=== PATIENT | female | born 1995 | race African-American/Black ===

== ENCOUNTER 2019-10-27 13:41 | Emergency (ER) | payer OTHER, SELFPAY ==
[2019-10-27 13:54] VITALS: BP 116/68; PULSE 87; RESP 16; TEMP 38.7; O2SAT 97
--- NOTE | 2019-10-27 14:01 | ED.GENADULT ---
HPI - General Adult General Chief complaint: Upper Respiratory Infection Stated complaint: bodyaches/cough/fever History of Present Illness HPI narrative: Patient is a 24-year-old -[place] female who presents to the urgent care via POV for evaluation of flulike symptoms that began approximately 3 days ago. She also reports frontal headache, wet, productive cough, fever, myalgias, nasal congestion, and decreased appetite. Maximum temperature was 102.0 per patient report. Symptoms improved with Janell-Homer and Mucinex. The smell of greesy foods worsen symptoms. She reports smoking marijuana daily. Denies history of COPD, bronchitis, asthma, and pneumonia. Denies current/past tobacco use. Pertinent negatives: sweats, chills, poor p.o. intake, fatigue, skin color changes, rhinorrhea, headache, dizziness, lymphadenopathy, sinus problems, ear pain/drainage, chest pain, heart murmurs, heart palpitations, shortness of breath, wheezing, cyanosis, hemoptysis, hoarseness, orthopnea, pleuritic pain, nausea, vomiting, diarrhea. Related Data Home Medications Medication Instructions Recorded Confirmed No Home Medications 10/27/19 10/27/19 Allergies Allergy/AdvReac Type Severity Reaction Status Date / Time No Known Allergies Allergy Verified 10/27/19 14:04 Review of Systems Review of Systems: Narrative: All other systems reviewed and are negative PMFSH Social History Social History Gender identity (if verbalized by the patient): Female Comments I have reviewed and agree with the patient's past medical, surgical, social, and family hx as documented by the RN. There is no relevant family history pertinent to the presenting complaint. Exam Narrative: Exam Narrative: GENERAL: Well-appearing, well-nourished, and in no acute distress. Febrile. Patient is speaking in full complete sentences. HEAD: Normocephalic, atraumatic. No sinus tenderness or facial swelling appreciated. EYES: PERRLA and EOMI. No evidence of erythema, swelling, or drainage. ENT: Bilateral external ears and ear canals normal. Bilateral TMs are normal.No TM perforation. Nares clear, no epistaxis. Bilateral turbinates with moderate swelling. Mild rhinorrhea noted to bilateral nares. Mucous membranes moist and pink. Uvula is midline without erythema and swelling. No evidence of petechial rash, cobblestoning, lesions, ulcers, erythema, swelling, exudates, peritonsillar abscess, tenting, or drooling. Breath odor and voice normal. NECK: Supple. No Lymphadenopathy or nuchal rigidity appreciated. CHEST: Bilateral lung varela are clear to auscultation. No respiratory distress. No evidence of cough or pleuritic cp upon examination. HEART: Regular rate and rhythm. No murmur, gallop, or rub heard. EXTREMITIES: Normal range of motion. No edema. SKIN: Warm, dry, no rash. NEURO: No focal deficits. Alert and oriented x3. Course Vital Signs Vital signs: Vital Signs Temperature 101.6 F H 10/27/19 13:54 Pulse Rate 87 10/27/19 13:54 Respiratory Rate 16 10/27/19 13:54 Blood Pressure 116/68 10/27/19 13:54 Pulse Oximetry 97 10/27/19 13:54 Temperature 101.6 F H 10/27/19 13:54 Pulse Rate 87 10/27/19 13:54 Respiratory Rate 16 10/27/19 13:54 Blood Pressure 116/68 10/27/19 13:54 Pulse Oximetry 97 10/27/19 13:54 Medical Decision Making MDM Narrative Medical decision making narrative: The patient/guardian displays adequate decision making capability and despite a detailed discussion of alternatives, benefits, risks, and consequences refuses antipyretics offered at this clinic Differential Diagnosis Differential Diagnosis: Allergic rhinitis, ABRS, acute viral sinusitis, strep pharyngitis, nasopharyngitis, bronchitis, pneumonia, AOM, otitis externa, viral URI, influenza Medical Records Medical records reviewed: Yes I reviewed the patient's medical records. Vital Signs Vital Signs
== END 2019-10-27 14:25 | disposition home or self-care (01) ==
PROVIDERS: Emergency Provider Nurse Practitioner Family
DX: J10.1 Influenza due to other identified influenza virus with other respiratory manifestations (principal)
CPT/HCPCS: 87804; 99202; G0463